=== PATIENT | female | born 1955 | race African-American/Black ===

== ENCOUNTER 2017-09-28 08:29 | Outpatient (CLI) | payer BC, OTHER ==
--- NOTE | 2017-09-28 10:17 | Mammography Report ---
BILATERAL MAMMOGRAM: FINDINGS: The breasts are almost entirely fat (<25% glandular). No mass, distortion, suspicious calcification, or skin change is seen. No significant change when compared to exams dating back to 2015. CAD was utilized. IMPRESSION: Negative mammogram. There is no mammographic evidence of malignancy. RECOMMENDATION: Follow-up per ACS guidelines. BI-RADS CATEGORY: 1 = Negative ACR BI-RADS MAMMOGRAPHIC CODES: 0 = Needs additional imaging evaluation; 1 = Negative; 2 = Benign; 3 = Probably benign; 4 = Suspicious; 5 = Malignant; 6 = Known biopsy-proven malignancy COMMENT: 1. Dense breast tissue, i.e., adenosis, fibrocystic changes, etc., may obscure an underlying neoplasm. 2. Approximately 10% of cancers are not detected with mammography. 3. A negative mammography report should not delay biopsy if a clinically suspicious mass is present. COMMENT: Patient follow-up letters are generated in [employer].
== END 2017-09-28 08:30 | disposition home or self-care (01) ==
LOC: MAMMO 08:29
PROVIDERS: ATTEND Internal Medicine
DX: Z12.31 Encounter for screening mammogram for malignant neoplasm of breast (principal); J45.909 Unspecified asthma, uncomplicated
CPT/HCPCS: 77067

== ENCOUNTER 2018-10-25 09:23 | Outpatient (CLI) | payer OTHER ==
--- NOTE | 2018-10-25 11:40 | Mammography Report ---
BILATERAL DIGITAL SCREENING MAMMOGRAM with CAD: 10/25/18 09:23:00 CLINICAL: Routine screening. COMPARISON:09/28/17 FINDINGS: There are bilateral scattered areas of fibroglandular density. No mass, architectural distortion or suspicious calcifications. IMPRESSION: No mammographic evidence of malignancy. BI-RADS CATEGORY: 1 - - Negative RECOMMENDATION: Routine mammographic screening in one year. COMMENT: Patient follow-up letters are generated by our [email or web address] application.
== END 2018-10-25 09:24 | disposition home or self-care (01) ==
LOC: MAMMO 09:23
PROVIDERS: ATTEND Internal Medicine
DX: Z12.31 Encounter for screening mammogram for malignant neoplasm of breast (principal); J45.909 Unspecified asthma, uncomplicated
CPT/HCPCS: 77067

== ENCOUNTER 2019-10-27 13:45 | Outpatient (CLI) | payer OTHER ==
--- NOTE | 2019-10-27 16:15 | Mammography Report ---
DIGITAL SCREENING MAMMOGRAM WITH CAD, 10/27/2019 INDICATION: Routine screening mammography. TECHNIQUE: Digital bilateral 2D mammography was obtained in the craniocaudal and mediolateral obliq ue projections. This examination was interpreted with the benefit of Computer-Aided Detection analysi s. COMPARISON: 10/25/2018, 09/28/2017 FINDINGS: Breast Density: There are scattered areas of fibroglandular density. There is no evidence of dominant mass, suspicious calcifications or architectural distortion in eithe r breast. Mild stable bilateral nodularity. Stable benign calcifications, right breast. Overall, no i nterval change. IMPRESSION: No evidence of malignancy. Follow up recommendation: Routine yearly BI-RADS Category 2: Benign. A "normal" or negative report should not discourage follow up or biopsy of a clinically significant f inding. A written summary of these findings will be mailed to the patient. The patient will be entered into a mammography reporting system which will generate a reminder letter for the patient's next appointmen t at the appropriate interval. The [employer] recommends yearly mammograms starting at age 40 and continuing as l robyn as a woman is in good health. Breast MRI is recommended for women with an approximate 20-25% or greater lifetime risk of breast cancer, including women with a strong family history of breast or ova oral cancer or who have been treated for Hodgkin's disease. Signer Name: Lupe Bond MD Signed: 10/27/2019 4:11 PM Workstation Name: [email or web address]
== END 2019-10-27 13:46 | disposition home or self-care (01) ==
LOC: MAMMO 13:45
PROVIDERS: ATTEND Internal Medicine
DX: Z12.31 Encounter for screening mammogram for malignant neoplasm of breast (principal)
CPT/HCPCS: 77067

== ENCOUNTER 2020-11-06 09:50 | Outpatient (CLI) | payer OTHER ==
--- NOTE | 2020-11-06 11:58 | Mammography Report ---
DIGITAL SCREENING MAMMOGRAM WITH CAD, 11/06/2020 CLINICAL INFORMATION / INDICATION: Routine screening mammography. TECHNIQUE: Digital bilateral 2D mammography was obtained in the craniocaudal and mediolateral obliqu e projections. This examination was interpreted with the benefit of Computer-Aided Detection analysis . COMPARISON: 10/27/2019, 10/25/2018 FINDINGS: Breast Density: There are scattered areas of fibroglandular density. No dominant mass, suspicious calcifications, or architectural distortion in either breast. There has been no significant interval change. IMPRESSION: No mammographic evidence of malignancy. Follow up recommendation: Routine yearly BI-RADS Category 1: Negative. A "normal" or negative report should not discourage follow up or biopsy of a clinically significant f inding. A written summary of these findings will be mailed to the patient. The patient will be entered into a mammography reporting system which will generate a reminder letter for the patient's next appointmen t at the appropriate interval. The [employer] recommends yearly mammograms starting at age 40 and continuing as l robyn as a woman is in good health. Breast MRI is recommended for women with an approximate 20-25% or greater lifetime risk of breast cancer, including women with a strong family history of breast or ova oral cancer or who have been treated for Hodgkin's disease. Signer Name: Javad Mayorga MD Signed: 11/06/2020 11:53 AM Workstation Name: [id number]
== END 2020-11-06 09:51 | disposition home or self-care (01) ==
LOC: MAMMO 09:50
PROVIDERS: ATTEND Internal Medicine
DX: Z12.31 Encounter for screening mammogram for malignant neoplasm of breast (principal)
CPT/HCPCS: 77067

== ENCOUNTER 2021-11-07 08:45 | Outpatient (CLI) | payer MEDICARE ==
--- NOTE | 2021-11-09 16:05 | Mammography Report ---
DIGITAL SCREENING MAMMOGRAM WITH CAD, 11/07/2021 CLINICAL INFORMATION / INDICATION: Routine screening mammography. TECHNIQUE: Digital bilateral 2D mammography was obtained in the craniocaudal and mediolateral oblique projections. This examination was interpreted with the benefit of Computer-Aided Detection analysis. COMPARISON: 11/06/20, 10/27/19, 09/28/17 FINDINGS: Breast Density: There are scattered areas of fibroglandular density. No dominant mass, suspicious calcifications, or architectural distortion in the right breast. Left breast nodule with oval shape, circumscribed margins, and equal density. Size is 0.6 cm. Locatio n is 6 o'clock. Depth is middle. Distance from Nipple (cm) is 7.5 cm.. Nodule has enlarged slightly s 2020 when it measured 3 mm. This nodule had been stable for several years prior. IMPRESSION: Slight enlargement of left breast nodule. Ultrasound left breast is recommended for furth er evaluation. Follow up recommendation: Ultrasound BI-RADS Category 0: INCOMPLETE. Needs additional imaging evaluation and/or prior mammograms for [address]. A "normal" or negative report should not discourage follow up or biopsy of a clinically significant f inding. A written summary of these findings will be mailed to the patient. The patient will be entered into a mammography reporting system which will generate a reminder letter for the patient's next appointmen t at the appropriate interval. The [employer] recommends yearly mammograms starting at age 40 and continuing as l robyn as a woman is in good health. Breast MRI is recommended for women with an approximate 20-25% or greater lifetime risk of breast cancer, including women with a strong family history of breast or ova oral cancer or who have been treated for Hodgkin's disease. Signer Name: Rosalind Robins MD Signed: 11/09/2021 4:00 PM Workstation Name: [email or web address]
== END 2021-11-07 08:46 | disposition home or self-care (01) ==
LOC: MAMMO 08:45
PROVIDERS: ATTEND Internal Medicine
DX: Z12.31 Encounter for screening mammogram for malignant neoplasm of breast (principal)
CPT/HCPCS: 77067

== ENCOUNTER 2021-11-25 08:36 | Outpatient (CLI) | payer MEDICARE ==
--- NOTE | 2021-11-25 10:18 | Ultrasound Report ---
ULTRASOUND BREAST LEFT LIMITED, 11/25/2021 CLINICAL INFORMATION / INDICATION: Abnormal screening mammogram TECHNIQUE: Targeted ultrasound evaluation was performed of the area of interest. COMPARISON: Screening mammography 11/07/2021 FINDINGS: In the 6:00 position, 7 cm from the nipple, corresponding to the mammographic abnormality, a 5 mm mostly hypoechoic nodule is seen with mildly irregular borders. I do not truly see shadowing, particularly as seen on cine series and confirmed with the technologist, but there is not significant through transmission. Borders are mildly irregular. IMPRESSION: Small solid nodule correlates with the nodule on mammogram. Follow up recommendation: Ultrasound-guided biopsy BI-RADS Category 4: SUSPICIOUS FOR MALIGNANCY. A normal or "negative" report should not preclude biopsy or follow-up of a clinically suspicious find ing. Signer Name: Alonso Kebede MD Signed: 11/25/2021 10:14 AM Workstation Name: [id number]
== END 2021-11-25 08:37 | disposition home or self-care (01) ==
LOC: US 08:36
PROVIDERS: ATTEND Internal Medicine
DX: N63.20 Unspecified lump in the left breast, unspecified quadrant (principal)